=== PATIENT | female | born 1960 | race Caucasian/White ===

== ENCOUNTER 2024-03-21 15:11 | Emergency (ER) | payer OTHER ==
[~2024-03-21] VITALS: Ht 165.1 cm; Wt 61.2 kg
[2024-03-21 15:25] VITALS: BP 174/82; PULSE 61; RESP 20; TEMP 99; O2SAT 99
[2024-03-21] MEDS: LABETALOL 20 MG/4 ML VIAL IVP ONE (15:33)
[2024-03-21 15:48] LABS: BASOPHILS # (AUTO) 0.1 K/uL (0.00-0.22); BASOPHILS % (AUTO) 1.1 % (0.0-2.0); EOSINOPHILS # (AUTO) 0.2 K/uL (0-0.4); EOSINOPHILS % (AUTO) 2.6 % (0.0-4.0); HEMATOCRIT 39.1 % (36-48); HEMOGLOBIN 13.2 g/dL (12.0-16.0); LYMPHOCYTES # (AUTO) 2.5 K/uL (2.5-16.5); LYMPHOCYTES % (AUTO) 38.7 % (20.5-51.1); MEAN CORPUSCULAR HEMOGLOBIN 30 pg (27-31); MEAN CORPUSCULAR HGB CONC 34 g/dL (33-37); MEAN CORPUSCULAR VOLUME 87.4 fL (80-94); MONOCYTES # (AUTO) 0.6 K/uL (0.8-1.0); MONOCYTES % (AUTO) 8.6 % (1.7-9.3); NEUTROPHILS # (AUTO) 3.2 K/uL (1.8-7.7); PLATELET COUNT (AUTO) 231 K/uL (140-450); RED BLOOD CELL COUNT(AUTO) 4.48 MIL/uL (4.20-5.40); RED CELL DISTRIBUTION WIDTH 13.4 % (11.6-13.7); WHITE BLOOD COUNT (AUTO) 6.4 K/uL (4.8-10.8)
[2024-03-21 15:52] VITALS: O2SAT 99
[2024-03-21] MEDS ORDERED: ACETAMINOPHEN EXTRA STRENGTH 500 MG TAB ONE (15:57)
[2024-03-21] MEDS: ACETAMINOPHEN EXTRA STRENGTH 500 MG TAB PO ONE (16:00)
[2024-03-21 16:04] LABS: ALBUMIN 4.1 g/dL (3.4-5.0); ANION GAP 11.1 (8-16); CALCIUM 9.1 mg/dL (8.5-10.1); CARBON DIOXIDE 30.2 mmol/L (21-32); CREATININE 0.7 mg/dL (0.6-1.3); POTASSIUM 3.3 mmol/L (3.5-5.1); TOTAL BILIRUBIN 0.5 mg/dL (0.0-1.0); TOTAL PROTEIN, SERUM 7.5 g/dL (6.4-8.2)
[2024-03-21] MEDS ORDERED: LID5T TP (19:23)
[2024-03-21] MEDS ORDERED: IBUP-2213 PO (19:23)
[2024-03-21 19:32] VITALS: BP 142/82; PULSE 61; RESP 20; TEMP 98.2; O2SAT 99
== END 2024-03-21 19:32 | disposition home or self-care (01) ==
LOC: MED 15:11
DX: R07.9 Chest pain, unspecified (principal); R06.02 Shortness of breath; R11.2 Nausea with vomiting, unspecified; Z79.1 Long term (current) use of non-steroidal anti-inflammatories (NSAID); Z79.899 Other long term (current) drug therapy; Z87.828 Personal history of other (healed) physical injury and trauma
CPT/HCPCS: 36415; 71045; 71275; 74174; 80053; 83880; 84484; 85025; 85379; 93005; 96374; 99285; J3490; Q9967

== ENCOUNTER 2024-07-27 22:58 | Emergency (ER) | payer OTHER ==
[~2024-07-27] VITALS: Ht 162.6 cm; Wt 64.0 kg
[~2024-07-27 22:58] MED LIST: IBUP-2213 PO; LID5T TP
[2024-07-27 23:15] VITALS: BP 176/86; PULSE 71; RESP 20; TEMP 98; O2SAT 99
[2024-07-27] MEDS ORDERED: MORPHINE SULFATE 4 MG/ML SYR ONE (23:47)
[2024-07-27] MEDS: MORPHINE SULFATE 4 MG/ML SYR IM ONE (23:51)
[2024-07-27 23:52] VITALS: BP 152/86; PULSE 68; RESP 18; TEMP 98
[2024-07-28 00:48] VITALS: O2SAT 99
[2024-07-28] MEDS: LIDOCAINE MPF 1% 10 MG/ML VIAL INJ ONE (02:36)
[2024-07-28] MEDS ORDERED: ACET500T99 PO (03:27)
== END 2024-07-28 03:40 | disposition home or self-care (01) ==
LOC: MED 22:58
DX: S62.614A Displaced fracture of proximal phalanx of right ring finger, initial encounter for closed fracture (principal); S62.616A Displaced fracture of proximal phalanx of right little finger, initial encounter for closed fracture; Z79.899 Other long term (current) drug therapy; W20.8XXA Other cause of strike by thrown, projected or falling object, initial encounter; Y93.89 Activity, other specified; Y92.89 Other specified places as the place of occurrence of the external cause; Y99.8 Other external cause status
CPT/HCPCS: 26725; 73120; 73130; 96372; 99284; J2001; J2270; Q0092